=== PATIENT | male | born 1955 | race African-American/Black ===

== ENCOUNTER 2018-04-06 15:17 | Emergency (ER) | payer OTHER ==
--- NOTE | 2018-04-06 16:00 | ED GENERAL ADULT ---
History of Present Illness General Chief Complaint: Chest Pain Stated Complaint: DEEJAY LAMBERT, DIZZY Source: patient Exam Limitations: poor historian Vital Signs & Intake/Output Vital Signs & Intake/Output Vital Signs Date Time Temp Pulse Resp B/P B/P Pulse O2 O2 Flow FiO2 Mean Ox Delivery Rate 04/06 2013 98.8 89 18 110/68 99 04/06 1843 97 04/06 1803 97.6 69 18 119/79 100 Room Air 04/06 1522 96.9 112 17 115/74 96 Room Air Allergies Coded Allergies: No Known Allergies (04/06/18) Triage Note: PT SENT TO ED FROM [facility] FOR EVAL OF LEFT SIDED CHEST PAIN DEVELOPING FOLLOWING STRESS TEST TODAY. ALSO REPORTS PAIN IN ABD. INTERMITTENT DIZZINESS AND NAUSEA. Triage Nurses Notes Reviewed? yes Onset: Gradual Duration: week(s): (SINCE JULY 2017), changing over time, continues in ED, getting worse Timing: recent history Injury Environment: home Severity: moderate, severe Severity Numbers: 7 No Modifying Factors: none Modifying Factors: Worsens With: movement. HPI: 62-year-old male with a history of gastric cancer presents for evaluation of chest pain. Patient reports he's been getting pain in the left side of his neck that radiates into the left arm and left chest since July of this year. He reports he's been seen at [facility] multiple times for this without determining etiology. He was referred to Dr. Lambert for further evaluation and had a stress test today. After the stress test was over patient was complaining of this pain in his neck chest and arm. Patient is a poor historian limiting the history. Patient reports the pain has been constant since July but that will intermittently get worse. Nothing seems to bring it on other than anxiety. Patient does feel anxious currently. He's been taking tramadol with some improvement but did not take any today. He denies any shortness of breath hemoptysis lower extremity edema. He had a gastrectomy due to gastric cancer 9 months ago. No other surgeries. According to Dr. Lambert his stress test was completely normal today and his pain didn't start until after the stress test not during. No nausea vomiting sweats or chills. No coughing. (Collins Bedolla) Past History Travel History Traveled to [place] past 21 day No Medical History Any Pertinent Medical History? see below for history Cancer(s): STOMACH CANCER Surgical History Surgical History: non-contributory Psychosocial History What is your primary language Tanzanian Tobacco Use: Never used Family History Hx Contributory? No (Collins Bedolla) Review of Systems Review of Systems Constitutional: Reports: no symptoms. EENTM: Reports: no symptoms. Respiratory: Reports: no symptoms. Cardiovascular: Reports: see HPI, chest pain. GI: Reports: no symptoms. Genitourinary: Reports: no symptoms. Musculoskeletal: Reports: see HPI, joint pain, muscle pain, neck pain. Skin: Reports: no symptoms. Neurological/Psychological: Reports: no symptoms. Hematologic/Endocrine: Reports: no symptoms. Immunologic/Allergic: Reports: no symptoms. All Other Systems: Reviewed and Negative (Collins Bedolla) Physical Exam Physical Exam General Appearance: well developed/nourished, no apparent distress, alert, awake , thin Head: atraumatic, normal appearance Eyes: Bilateral: normal appearance, PERRL, EOMI. Ears, Nose, Throat: normal pharynx, normal ENT inspection, hearing grossly normal Neck: normal inspection, supple, full range of motion, no midline tenderness, NO SWELLING OR LYMPHADENOPATHY. nO BRUITS THERE IS SOME PAIN WITH RANGE OF MOTION OF THE NECK ON THE ANERIOR LEFT SIDE Respiratory: normal breath sounds, no respiratory distress, lungs clear, LEFT CHEST WALL TENDERNESS TO PALPATUION NO BRUSING SWELLING ABRASIONS Cardiovascular: regular rate/rhythm, normal peripheral pulses Peripheral Pulses: 2+ radial (R), 2+ radial (L) Gastrointestinal: soft, non-tender Back: normal inspection, normal range of motion Extremities: normal inspection, normal range of motion, no edema Neurologic/Psych: no motor/sensory deficits, awake, alert, oriented x 3 Skin: intact, normal color, warm/dry Lymphatic: no anterior cervical dung Core Measures ACS in differential dx? Yes CVA/TIA Diagnosis: No Sepsis Present: No Sepsis Focused Exam Completed? No (Collins Bedolla) Progress Differential Diagnoses I considered the following diagnoses in my evaluation of the patient: [Muscle strain, carotid dissection, PE, pneumonia, acute coronary syndrome, musculoskeletal pain, rib fracture, aortic dissection] Plan of Care: Orders Procedure Date/time Status Heart Healthy Diet 04/07 B Active TROPONIN LEVEL 04/06 1900 Complete EKG 04/06 1900 Active Add-on Test (ER Only) 04/06 1537 Active TSH REFLEX 04/06 1522 Complete TROPONIN LEVEL 04/06 1522 Complete MAGNESIUM 04/06 1522 Complete D-DIMER 04/06 1522 Complete COMPREHENSIVE METABOLIC PANEL 04/06 1522 Complete CBC WITHOUT DIFFERENTIAL 04/06 152 Complete EKG 04/06 1519 Active Laboratory Tests 04/06/18 1918: Troponin I < 0.01 04/06/18 1557: Anion Gap 7, Estimated GFR > 60, BUN/Creatinine Ratio 11.7, Glucose 69, Calcium 10.1, Magnesium 2.0, Total Bilirubin 0.4, AST 28, ALT 42, Alkaline Phosphatase 84, Troponin I < 0.01, Total Protein 7.2, Albumin 4.3, Globulin 2.9, Albumin/ Globulin Ratio 1.5, TSH &T3 &Free T4 Intrp 1.640, D-Dimer High Sensitivty < 200, CBC w Diff NO MAN DIFF REQ, RBC 4.03 L, MCV 93.2, MCH 31.5 H, MCHC 33.8, RDW 13.0, MPV 7.3 L, Gran % 51.9, Lymphocytes % 32.1, Monocytes % 10.2 H, Eosinophils % 5.5 H, Basophils % 0.3, Absolute Granulocytes 2.2, Absolute Lymphocytes 1.4, Absolute Monocytes 0.4, Absolute Eosinophils 0.2, Absolute Basophils 0 Patient is here for evaluation of pain in his left neck that radiates into his left chest and shoulder. This pain has been going on since July of this year. He has been evaluated multiple times at [facility] and as part of evaluation was referred to auto glass technician Dr. Lambert who did a stress test today that was completely normal. Patient developed his pain after the stress test was done and he was told to come to the ER for further evaluation. The pain is reproducible to palpation and with range of motion of the neck. There is no soft tissue swelling in the area of the neck palpable lymphadenopathy patient denies any difficulty or painful swallowing. No tonsillar swelling or exudate. Labs EKG ordered chest x-ray ordered patient will get a head CT and a carotid vertebral ultrasound. Blood work is unremarkable including a negative d-dimer negative troponin head CT is negative chest x-rays negative ultrasound is still pending. Patient was medicated with tramadol and is feeling somewhat better. Spoke with Dr. Lambert who recommends a repeat EKG and troponin at this is negative and unchanged patient can be discharged home. Case discussed with Dr. SNIDER HE agrees. Patient signed out to Caleb Dickson pending repeat EKG and troponin. Diagnostic Imaging: Viewed by Me: Radiology Read, Ultrasound. Discussed w/RAD: Radiology Read, Ultrasound. Radiology Impression: PATIENT: MINA PIEDRA PRESENT AGE: 62 PATIENT ACCOUNT NO: [id number] : 53 LOCATION: [facility] ORDERING PHYSICIAN: Collins SIMMONS SERVICE DATE: 04/06/18 EXAM TYPE: US - [id number] DOPPLER US DUPLEX CAROTID AND VERTEBRAL CLINICAL INFORMATION: Left-sided neck pain. COMPARISON: None available. TECHNIQUE: Real- time ultrasound and Doppler techniques (integrating B-mode 2D vascular images, Doppler spectral analysis and color flow Doppler imaging) were utilized to interrogate the extracranial carotid and vertebral arteries bilaterally. The degree of stenosis determined by criteria similar to NASCET. FINDINGS: Right common carotid artery peak systolic velocity is 113 cm/s. Right internal carotid artery peak systolic velocity ranges between 53 and 87 cm/s with maximal end- diastolic velocity of 33 cm/s. Antegrade flow within the right vertebral artery. Left common carotid artery peak systolic velocity is 99 cm/s. Left internal carotid artery peak systolic velocity ranges between 54 and 68 cm/s with maximal end-diastolic velocity of 26 cm/s. There is antegrade flow within the left vertebral artery. IMPRESSION: There are no significant internal carotid artery stenoses by sonographic criteria. No definite intimal flaps are identified with ultrasound though a CTA would be more sensitive in assessing for any arterial dissections. DICTATED BY: Kar Martínez MD DATE/TIME DICTATED:04/06/181738 ASSOCIATE CONSULTING ENGINEER:TONY DATE/TIME TRANSCRIBED:04/06/181738 CONFIDENTIAL, DO NOT COPY WITHOUT APPROPRIATE AUTHORIZATION. CXR Impression: PATIENT: MINA PIEDRA PRESENT AGE: 62 PATIENT ACCOUNT NO: [id number] : 53 LOCATION: [facility] ORDERING PHYSICIAN: Caleb SIMMONS SERVICE DATE: 04/06/18 EXAM TYPE: RAD - XRY-CHEST XRAY, TWO VIEWS EXAMINATION: XR CHEST CLINICAL INFORMATION: Chest pain COMPARISON: None TECHNIQUE: 2 views of the chest were obtained. FINDINGS: The cardiomediastinal silhouette is normal. The lungs are clear without consolidation, pleural effusion or pneumothorax. No acute osseous abnormalities. IMPRESSION: No acute cardiopulmonary process. DICTATED BY: Aiden Pratt MD DATE/TIME DICTATED:04/06/181612 ASSOCIATE CONSULTING ENGINEER:TONY DATE/TIME TRANSCRIBED:04/06/181612 CONFIDENTIAL, DO NOT COPY WITHOUT APPROPRIATE AUTHORIZATION. <Electronically signed in Other Vendor System> SIGNED BY: Aiden Pratt MD 04/06/181616 Initial ED EKG: normal sinus rhythm, nonspecific ST T wave chg Hand-Off Endorsed To: Caleb Camara Endorsed Time: 1757 Pending: EKG, labs (Collins Bedolla) Repeat EKG: unchanged (Caleb Camara) Departure Departure Disposition: STILL A PATIENT Condition: Stable Clinical Impression Primary Impression: Neck pain Secondary Impressions: Chest pain Qualifiers: Chest pain type: unspecified Qualified Code: R07.9 - Chest pain, unspecified Referrals: Patient Has No Primary Care Dr (PCP/Family) Latoya BRANTLEY PHD,Ok [place] Additional Instructions: Continue tramadol as needed for pain. Follow-up with your primary care doctor and Dr. Lambert to review all results of today's visit monitor your symptoms return with any concerns. Departure Forms: Customer Survey General Discharge Information (Collins Bedolla) Departure Comments 04/06/2018 8:18:11 PM Second EKG unchanged. Second troponin negative. Follow-up with primary care doctor and auto glass technician. (Caleb Camara) Critical Care Note Critical Care Note Critical Care Time: non-applicable (Collins Bedolla)
[2018-04-06 16:08] LABS: ABSOLUTE BASOPHIL COUNT 0 /CUMM (0.0-0.2); ABSOLUTE EOSINOPHIL COUNT 0.2 /CUMM (0.0-0.7); ABSOLUTE GRANULOCYTE CT 2.2 /CUMM (1.4-6.5); ABSOLUTE LYMPH COUNT 1.4 /CUMM (1.2-3.4); ABSOLUTE MONOCYTE COUNT 0.4 /CUMM (0.10-0.60); BASOPHIL % 0.3 % (0.0-2.0); EOSINOPHIL % 5.5 % (0-5); GRANULOCYTE % 51.9 % (42.2-75.2); HEMATOCRIT 37.6 % (42-52); MEAN CORPUSCULAR HGB 31.5 PG (27.0-31.0); MEAN CORPUSCULAR HGB CONC 33.8 G/DL (33.0-37.0); MEAN CORPUSCULAR VOLUME 93.2 FL (80.0-94.0); MEAN PLATELET VOLUME 7.3 FL (7.4-10.4); PLATELET COUNT 204 /CUMM (130-400); RED BLOOD CELL CT 4.03 /CUMM (4.70-6.10); WHITE BLOOD CELL COUNT 4.2 /CUMM (4.8-10.8)
--- NOTE | 2018-04-06 16:17 | RADIOLOGY REPORT ---
EXAMINATION: XR CHEST CLINICAL INFORMATION: Chest pain COMPARISON: None TECHNIQUE: 2 views of the chest were obtained. FINDINGS: The cardiomediastinal silhouette is normal. The lungs are clear without consolidation, pleural effusion or pneumothorax. No acute osseous abnormalities. IMPRESSION: No acute cardiopulmonary process.
--- NOTE | 2018-04-06 16:42 | CT SCAN REPORT ---
EXAMINATION: CT HEAD WITHOUT CONTRAST CLINICAL INFORMATION: Dizzy, lightheaded. COMPARISON: None TECHNIQUE: Contiguous axial imaging was performed from the skull base to vertex without intravenous administration of contrast. DLP: 631.26 mGy-cm FINDINGS: There is no evidence of acute intracranial hemorrhage or territorial infarction. No abnormal mass effect or midline shift is seen. Christie to white matter differentiation is well preserved. No extra-axial fluid collections are identified. The ventricles are normal in size. There is no abnormal attenuation within the brain parenchyma. The osseous structures and soft tissues are normal. The mastoid air cells and visualized portions of the paranasal sinuses are well aerated. IMPRESSION: No acute intracranial pathology.
--- NOTE | 2018-04-06 17:48 | ULTRASOUND REPORT ---
US DUPLEX CAROTID AND VERTEBRAL CLINICAL INFORMATION: Left-sided neck pain. COMPARISON: None available. TECHNIQUE: Real-time ultrasound and Doppler techniques (integrating B-mode 2D vascular images, Doppler spectral analysis and color flow Doppler imaging) were utilized to interrogate the extracranial carotid and vertebral arteries bilaterally. The degree of stenosis determined by criteria similar to NASCET. FINDINGS: Right common carotid artery peak systolic velocity is 113 cm/s. Right internal carotid artery peak systolic velocity ranges between 53 and 87 cm/s with maximal end-diastolic velocity of 33 cm/s. Antegrade flow within the right vertebral artery. Left common carotid artery peak systolic velocity is 99 cm/s. Left internal carotid artery peak systolic velocity ranges between 54 and 68 cm/s with maximal end-diastolic velocity of 26 cm/s. There is antegrade flow within the left vertebral artery. IMPRESSION: There are no significant internal carotid artery stenoses by sonographic criteria. No definite intimal flaps are identified with ultrasound though a CTA would be more sensitive in assessing for any arterial dissections.
[2018-04-06 20:13] VITALS: BP 110/68
== END 2018-04-06 20:17 ==
LOC: ERH 15:17
PROVIDERS: Physician Assistant Medical
DX: M54.2 Cervicalgia (principal); R07.9 Chest pain, unspecified
CPT/HCPCS: 71046; 93005; 93010